=== PATIENT | male | born 1980 | race Two or more races ===

== ENCOUNTER → 2024-05-27 | Outpatient (CLI) | payer MEDICAID, SELFPAY ==
--- NOTE | 2024-05-27 12:00 | XR_ITS ---
Examination: Abdomen sonogram, Limited Date and time of exam: May 27, 2024 1247 hours INDICATIONS: Elevated alkaline phosphatase on laboratory examination performed one month ago Technique: Real-time romero scale transabdominal sonographic images of the upper abdomen obtained. Findings: Normal gallbladder Normal common bile duct 0.2 cm Pancreatic head 3.1 cm Liver 18.1 cm fatty infiltration no focal liver lesions Normal hepatopedal portal venous flow Patent IVC IMPRESSION: Normal gallbladder Mild hepatomegaly fatty liver
== END | disposition home or self-care (01) ==
LOC: CDIM 12:20
PROVIDERS: Referring Provider Physician Assistant; Visit Provider Physician Assistant
DX: K76.0 Fatty (change of) liver, not elsewhere classified (principal)
CPT/HCPCS: 76705

== ENCOUNTER 2024-06-26 19:21 | Emergency (ER) | payer MEDICAID, SELFPAY ==
[2024-06-26 19:21] VITALS: BMI 37.5
[2024-06-26 19:42] VITALS: BP 158/102; PULSE 92; RESP 18; TEMP 37.2; O2SAT 99
--- NOTE | 2024-06-26 19:51 | PD.EDRME ---
Rapid Medical Screening Exam RME Arrival date/time: 06/26/24 19:21 44 year old male present to Ed for c/o of abd pain, diarrhea for 1 day I have greeted and performed a focused initial assessment of this patient. A comprehensive ED assessment and evaluation of the patient, analysis of all test results, and completion of the medical decision making process will be conducted by additional ED providers. Chief Complaint: Abdominal Pain Time Seen by Provider: 06/26/24 19:36 Vital signs: Vital Signs Temperature 99.0 F 06/26/24 19:42 Pulse Rate 92 06/26/24 19:42 Respiratory Rate 18 06/26/24 19:42 Blood Pressure 158/102 H 06/26/24 19:42 Pulse Oximetry (%) 99 06/26/24 19:42 Oxygen Delivery Method Room Air 06/26/24 19:42
[2024-06-26] MEDS: MG HYD/AL HYD/SIME (Maalox Reg) SUSP 30 ML UDC PO (20:15)
[2024-06-26 20:41] LABS: Basophils % (Auto) 0 % (0-2.5); Eosinophils # (Auto) 0.1 Thou/mm3 (0.0-0.5); Eosinophils % (Auto) 1 % (0-10); Hematocrit 43.5 % (41.0-53.0); Hemoglobin 14.9 g/dL (13.5-16.0); Immature Granulocytes % (Auto) 0 % (0-0); Immature Granulocytes Auto 0.04 Thou/mm3 (0.00-0.00); Lymphocytes # (Auto) 1.4 Thou/mm3 (1.0-4.8); Lymphocytes % (Auto) 14 % (10-50); Mean Corpuscular HGB Conc 34.3 g/dl (31.0-37.0); Mean Corpuscular Hemoglobin 28.3 pg (25.0-35.0); Mean Corpuscular Volume 83 fL (80-100); Monocytes # (Auto) 0.5 Thou/mm3 (0.0-0.8); Monocytes % (Auto) 5 % (0-12); Neutrophils # (Auto) 8.3 Thou/mm3 (1.8-7.7); Neutrophils % (Auto) 81 % (37-80); Nucleated Red Blood Cell % 0 /100 WBC (0); Platelet Count 194 Thou/mm3 (140-440); RDW Standard Deviation 39.2 fL (35.1-43.9); Red Blood Count 5.27 Miln/mm3 (4.50-5.90); White Blood Count 10.2 Thou/mm3 (3.8-10.6)
[2024-06-26 21:09] LABS: Alanine Aminotransferase 38 U/L (10-49); Albumin, Serum 4.8 gm/dL (3.5-5.0); Albumin/Globulin Ratio 1.8 (1.2-2.2); Alkaline Phosphatase 123 U/L (46-116); Anion Gap 9 (7-16); Aspartate Amino Transferase 24 U/L (0-34); BUN/Creatinine Ratio 24 Ratio (12-20); Bilirubin,Total 0.5 mg/dL (0.3-1.2); Blood Urea Nitrogen 24 mg/dL (9-23); Calcium 9.8 mg/dL (8.3-10.6); Calcium (Corrected) 9.8 mg/dL (8.5-10.1); Carbon Dioxide 27.4 mMol/L (20.0-31.0); Chloride 102 mMol/L (98-107); Estimated Creatinine Clearance 112.1 mL/min (>60); Globulin 2.6 gm/dL (2.3-3.5); Glucose 160 mg/dL (74-106); Lipase 104 U/L (12-53); Osmolality,Calculated 282 (275-295); Potassium 3.9 mMol/L (3.4-5.1); Sodium 138 mMol/L (136-145); Total Protein 7.4 gm/dL (5.7-8.2); eGFR > 60 See Note
--- NOTE | 2024-06-26 21:17 | EDNOTE_ITS ---
ED Abdominal Pain RME/HPI General Chief Complaint: Abdominal Pain Stated complaint: STOMACH BURNING Time seen by provider: 06/26/24 19:36 Arrival date/time: 06/26/24 19:21 44 year old male present to emergency room with c/o of generalized abdominal cramping for 1 day. LOCATION: generalized periumbical abdominal pain SEVERITY: Symptoms are described as being severe with limitations on activities of daily living QUALITY: Symptoms are described as being cramping CONTEXT: The patient is unable to identify any inciting events. DURATION/TIMING: The symptoms started approximately one day ago and have been constant this then, and have been progressive getting worse. ASSOCIATED SYMPTOMS: The patient is unable to identify any other associated symptoms. MODIFYING FACTORS: The patient is unable to identify any alleviating or aggravating symptoms. PERTINENT ROS: reports emesis is nonbloody, diarrhea is nonbloody, no recent foreign travel, no recent ingestion of raw seafood or meat, no head trauma, no headache, no chest pain, no orthostatis symptoms, denies any focal abdominal pain, denies any toxicological ingestions REVIEW OF SYSTEMS: See History of Present Illness - with the exception of those mentioned in the history of present illness, all other systems reviewed and reported as negative GENERAL: In general the patient is awake, interactive, in an emergency department gurney. HEAD/EYES/EARS/NOSE/THROAT: normo-cephalic, atraumatic, mucus membranes are moist, anicteric, palpebral conjunctiva is pink, trachea is midline. CARDIOVASCULAR: regular rate and regular rhythm, no murmurs, heart sounds are not distant, strong pulses in all four extremities that are equal and symmetric bilateral upper and lower extremities, normal capillary refill. CHEST/PULMONARY: normal chest rise and fall, good air movement, clear to auscultation bilaterally, normal inspiratory to expiratory ratios without evidence of respiratory distress. NECK: No midline/Paraspinal tenderness, no step off ROM/Strenght intact No Kernig and bruzinski sign. No trauma ABDOMEN: soft, generalized abdominal tenderness no masses appreciated BACK: normal range of motion without pain. NEUROLOGICAL: cranio-facial features are symmetric, moves all four extremities equally without obvious limitations or weakness. EXTREMITY: no tenderness to palpation over the long bones or large joints of the bilateral upper and lower extremities, no joint swelling, no joint erythema, no signs of trauma, no unilateral leg swelling and no peripheral edema. SKIN: warm, dry, well-perfused, no jaundice, no rash, no telangiectasias or petechia. PSYCH: calm, cooperative, no evidence of psychosis or agitation RME / HPI RME / HPI narrative: 06/26/24 19:21 44 year old male present to Ed for c/o of abd pain, diarrhea for 1 day I have greeted and performed a focused initial assessment of this patient. A comprehensive ED assessment and evaluation of the patient, analysis of all test results, and completion of the medical decision making process will be conducted by additional ED providers. Related Data Previous Rx's ?Medication ?Instructions ?Recorded lisinopril 5 mg tablet 5 mg PO QDAY #30 tabs 11/14/23 aluminum-mag hydroxide-simethicone 10 ml PO QID PRN indigestion #322 06/26/24 200 mg-200 mg-20 mg/5 mL oral susp mL (Advanced Antacid-Antigas) Allergies Allergy/AdvReac Type Severity Reaction Status Date / Time No Known Allergies Allergy Verified 06/26/24 19:23 Course Course Course Narrative: Patient presenting with nausea, vomiting, and diarrhea.? Vital signs were reviewed.? Patient afebrile.? Abdominal exam is benign.? No evidence of acute fish rgical emergency or infection requiring antibiotics.? I considered biliary disease, bowel obstruction, colitis, mesenteric ischemia, appendicitis, urinary tract infection, infectious diarrhea, however, these are less likely given the history and exam.? While in ED patient was provided with maalox? at which point patient stated that their symptoms had improved. Provided with prescription for maalox . Advised to continue Ibuprofen and Tylenol at home as needed for pain/fever. Patient is to followup with primary physician if symptoms continue. Advised to return to the ER if concern for inability to tolerate PO intake, dehydration, or other concerns. Plan:?? Discharge from ETC Ibuprofen/Acetaminophen for Pain/Fever Prescription for ondansetron for nausea. Pt was advised on supportive therapies, including increasing dietary fiber, eating smaller meals, refrain from eating copious amounts of irritating foods (fatty foods, milk products, chocolate, and caffeine), maintaining a food diary, advancing fluids as tolerated, refraining from EtOH consumption, decreasing stress, and increasing exercise. Maintain Fluid Intake: Pedialyte/Gatorade, Juice, Non-caffeinated Pop (Sprite) Patient to follow up with PCP or in ER should symptoms worsen or not improve. Patient verbally expressed understanding and all questions were addressed. Quality Measures none Orders Category Date Time Status Bedside COVID-19 Antigen Test NOW Care 06/26/24 19:51 Active Bedside Influenza A&B Antigen Test NOW Care 06/26/24 19:52 Completed CBC Stat Lab 06/26/24 20:12 Completed CMP [Comprehensive Metabolic Panel] Stat Lab 06/26/24 20:12 Completed Lipase Stat Lab 06/26/24 20:12 Completed mg Hyd/Al Hyd/Petey Susp [Maalox Susp] Med 06/26/24 19:51 Discontinued 30 ml PO X1 ONE Vital Signs Vital signs: Vital Signs Temperature 99.0 F 06/26/24 19:42 Pulse Rate 92 06/26/24 19:42 Respiratory Rate 18 06/26/24 19:42 Blood Pressure 158/102 H 06/26/24 19:42 Pulse Oximetry (%) 99 06/26/24 19:42 Oxygen Delivery Method Room Air 06/26/24 19:42 Abdominal Pain MDM Patient data External records reviewed:: None Clinical information provided by:: patient Social determinants that could affect healthcare access:: none Patient has the following chronic illnesses:: none How is presenting disease/condition affected by chronic disease/condition?: no chronic disease Evaluation data The following diagnostics were reviewed and interpreted by me:: lab results Lab and/or radiology exams considered but not ordered:: none Interpretation Summary: cbc/cmp/urine wnl covid/flu negative Medications / Prescriptions Medications or Prescriptions considered but not ordered:: none Medication administrations:: Medication Administration History Discontinued Medications Al Hydrox/Mg Hydrox/Simethicone (Mg Hyd/Al Hyd/Petey (Maalox Reg) Susp 30 Ml Udc) 30 ml PO X1 ONE Stop: 06/26/24 19:52 Last Admin: 06/26/24 20:15 Dose: 30 ml Documented By: ANAHY as stated above Consultations Consultation(s) initiated? (list below): No Diagnosis Differential diagnosis abdominal pain: abdominal pain, constipation, diverticulitis and gastroenteritis Most likely diagnosis given after review of the tests above:: gastroenteritis Admission Indicated Admission indicated?: not indicated Admission Request Was there a request for admission?: No Disposition Plan Disposition Plan: Discharge Discharge Attestation Discharge Attestation: The patient and all family members were given an opportunity to ask questions and understood the discharge instructions. Discharge instructions specifically effects, indications for sooner follow up or return to the emergency department, and the expected course of current diagnosis. Patient condition: Stable Discharge Plan Plan Patient Disposition: HOME (Self Care) Health Concerns: Follow with PMD as directed Return to ED if sx worsen Prescriptions/Referrals Prescriptions/Med Rec: New alum-mag hydroxide-simeth [Advanced Antacid-Antigas] 200-200-20 mg/5 mL suspension 10 ml PO QID PRN (Reason: indigestion) Qty: 322 0RF Rx Instructions: administer between meals and at bedtime No Action lisinopril 5 mg tablet 5 mg PO QDAY Qty: 30 0RF Referrals: No Primary/Family,Physician [Primary Care Provider] - In 1 week Problem List Clinical Impression: Gastroenteritis Patient/Caregiver Discharge Instructions Education Materials: ED Gastroenteritis, Noninfectious Print Language: Bhutanese Stand Alone Forms: Swathi Award Info., Patient Portal Info Letter
[2024-06-26 21:21] VITALS: BP 154/89; PULSE 88; RESP 18; TEMP 37.1; O2SAT 93
== END 2024-06-26 21:23 | disposition home or self-care (01) ==
PROVIDERS: Physician Assistant; Emergency Provider Emergency Medicine
DX: K52.9 Noninfective gastroenteritis and colitis, unspecified (principal)
CPT/HCPCS: 36415; 80053; 83690; 85025; 87400; 87811; 99283; A9270